=== PATIENT | male | born 1945 | race Caucasian/White ===

== ENCOUNTER → 2020-04-11 11:55 | Outpatient (BNVA) | payer MEDICARE, OTHER, SELFPAY | PROVIDERS: Visit Provider Internal Medicine Cardiovascular Disease | DX: I10 Essential (primary) hypertension (principal); I25.10 Atherosclerotic heart disease of native coronary artery without angina pectoris; E78.2 Mixed hyperlipidemia; E11.9 Type 2 diabetes mellitus without complications; Z87.891 Personal history of nicotine dependence | CPT/HCPCS: 80053; 85025 ==

== ENCOUNTER → 2021-05-15 10:03 | Outpatient (BNVA) | payer MEDICARE, OTHER, SELFPAY | PROVIDERS: Referring Provider Family Medicine; Visit Provider Specialist | DX: G56.01 Carpal tunnel syndrome, right upper limb (principal); G56.21 Lesion of ulnar nerve, right upper limb; Z87.891 Personal history of nicotine dependence | CPT/HCPCS: 95908 ==

== ENCOUNTER → 2022-03-18 13:06 | Outpatient (BNVA) | payer MEDICARE, OTHER, SELFPAY | PROVIDERS: Visit Provider Thoracic Surgery (Cardiothoracic Vascular Surgery) | DX: E11.621 Type 2 diabetes mellitus with foot ulcer (principal); L97.812 Non-pressure chronic ulcer of other part of right lower leg with fat layer exposed; I96 Gangrene, not elsewhere classified | CPT/HCPCS: 97597; 99203; 99213; A6212 ==

== ENCOUNTER → 2022-04-01 08:09 | Outpatient (BNVA) | payer MEDICARE, OTHER, SELFPAY | PROVIDERS: Visit Provider Nurse Practitioner Family | DX: E11.622 Type 2 diabetes mellitus with other skin ulcer (principal); L97.812 Non-pressure chronic ulcer of other part of right lower leg with fat layer exposed; I96 Gangrene, not elsewhere classified; L97.822 Non-pressure chronic ulcer of other part of left lower leg with fat layer exposed | CPT/HCPCS: 11042 ==

== ENCOUNTER → 2022-04-15 08:03 | Outpatient (BNVA) | payer MEDICARE, OTHER, SELFPAY | PROVIDERS: Visit Provider Thoracic Surgery (Cardiothoracic Vascular Surgery) | DX: E11.622 Type 2 diabetes mellitus with other skin ulcer (principal); L97.422 Non-pressure chronic ulcer of left heel and midfoot with fat layer exposed; I96 Gangrene, not elsewhere classified | CPT/HCPCS: 97597 ==

== ENCOUNTER → 2022-04-22 08:08 | Outpatient (BNVA) | payer MEDICARE, OTHER, SELFPAY | PROVIDERS: Visit Provider Nurse Practitioner Family | DX: E11.622 Type 2 diabetes mellitus with other skin ulcer (principal); L97.812 Non-pressure chronic ulcer of other part of right lower leg with fat layer exposed; I96 Gangrene, not elsewhere classified | CPT/HCPCS: 11042; A6212 ==

== ENCOUNTER → 2022-04-29 08:45 | Outpatient (BNVA) | payer MEDICARE, OTHER, SELFPAY | PROVIDERS: Visit Provider Thoracic Surgery (Cardiothoracic Vascular Surgery) | DX: E11.622 Type 2 diabetes mellitus with other skin ulcer (principal); L97.812 Non-pressure chronic ulcer of other part of right lower leg with fat layer exposed; I96 Gangrene, not elsewhere classified | CPT/HCPCS: 97597; A6021 ==

== ENCOUNTER → 2022-05-08 08:24 | Outpatient (BNVA) | payer MEDICARE, OTHER, SELFPAY | PROVIDERS: Visit Provider Thoracic Surgery (Cardiothoracic Vascular Surgery) | DX: E11.622 Type 2 diabetes mellitus with other skin ulcer (principal); L97.811 Non-pressure chronic ulcer of other part of right lower leg limited to breakdown of skin; I96 Gangrene, not elsewhere classified | CPT/HCPCS: 97597 ==

== ENCOUNTER → 2022-05-15 08:29 | Outpatient (BNVA) | payer MEDICARE, OTHER, SELFPAY | PROVIDERS: Visit Provider Thoracic Surgery (Cardiothoracic Vascular Surgery) | DX: E11.622 Type 2 diabetes mellitus with other skin ulcer (principal); L97.811 Non-pressure chronic ulcer of other part of right lower leg limited to breakdown of skin; L97.812 Non-pressure chronic ulcer of other part of right lower leg with fat layer exposed; I96 Gangrene, not elsewhere classified | CPT/HCPCS: 97597 ==

== ENCOUNTER → 2022-05-17 13:13 | Outpatient (BNVA) | payer MEDICARE, OTHER, SELFPAY | PROVIDERS: Visit Provider Surgery | DX: I70.213 Atherosclerosis of native arteries of extremities with intermittent claudication, bilateral legs (principal); E11.622 Type 2 diabetes mellitus with other skin ulcer; L97.212 Non-pressure chronic ulcer of right calf with fat layer exposed | CPT/HCPCS: 29581 ==

== ENCOUNTER → 2022-05-22 08:43 | Outpatient (BNVA) | payer MEDICARE, OTHER, SELFPAY | PROVIDERS: Visit Provider Nurse Practitioner Family | DX: E11.622 Type 2 diabetes mellitus with other skin ulcer (principal); L97.811 Non-pressure chronic ulcer of other part of right lower leg limited to breakdown of skin; I96 Gangrene, not elsewhere classified; L97.812 Non-pressure chronic ulcer of other part of right lower leg with fat layer exposed | CPT/HCPCS: 97597 ==

== ENCOUNTER → 2022-05-29 09:30 | Outpatient (BNVA) | payer MEDICARE, OTHER, SELFPAY | PROVIDERS: Visit Provider Thoracic Surgery (Cardiothoracic Vascular Surgery) | DX: Z09 Encounter for follow-up examination after completed treatment for conditions other than malignant neoplasm (principal) | CPT/HCPCS: 99212 ==

== ENCOUNTER → 2022-06-05 07:59 | Outpatient (BNVA) | payer MEDICARE, OTHER, SELFPAY | PROVIDERS: Visit Provider Nurse Practitioner Family | DX: I96 Gangrene, not elsewhere classified (principal); I87.2 Venous insufficiency (chronic) (peripheral); L97.811 Non-pressure chronic ulcer of other part of right lower leg limited to breakdown of skin | CPT/HCPCS: 11042 ==

== ENCOUNTER → 2022-06-12 07:58 | Outpatient (BNVA) | payer MEDICARE, OTHER, SELFPAY | PROVIDERS: Visit Provider Thoracic Surgery (Cardiothoracic Vascular Surgery) | DX: I96 Gangrene, not elsewhere classified (principal); I87.2 Venous insufficiency (chronic) (peripheral); L97.811 Non-pressure chronic ulcer of other part of right lower leg limited to breakdown of skin | CPT/HCPCS: 97597; A6021 ==

== ENCOUNTER → 2022-06-19 07:52 | Outpatient (BNVA) | payer MEDICARE, OTHER, SELFPAY | PROVIDERS: Visit Provider Thoracic Surgery (Cardiothoracic Vascular Surgery) | DX: Z09 Encounter for follow-up examination after completed treatment for conditions other than malignant neoplasm (principal) | CPT/HCPCS: 99212; A6212 ==

== ENCOUNTER → 2022-07-02 13:30 | Outpatient (BNVA) | payer MEDICARE, OTHER, SELFPAY | PROVIDERS: Visit Provider Nurse Practitioner Family | DX: I96 Gangrene, not elsewhere classified (principal); E11.622 Type 2 diabetes mellitus with other skin ulcer; L97.812 Non-pressure chronic ulcer of other part of right lower leg with fat layer exposed; I70.213 Atherosclerosis of native arteries of extremities with intermittent claudication, bilateral legs | CPT/HCPCS: 11042; 11045 ==

== ENCOUNTER → 2022-07-09 10:38 | Outpatient (BNVA) | payer MEDICARE, OTHER, SELFPAY | PROVIDERS: Visit Provider Nurse Practitioner Family | DX: I96 Gangrene, not elsewhere classified (principal); E11.622 Type 2 diabetes mellitus with other skin ulcer; L97.811 Non-pressure chronic ulcer of other part of right lower leg limited to breakdown of skin | CPT/HCPCS: 11042 ==

== ENCOUNTER → 2022-07-16 12:59 | Outpatient (BNVA) | payer MEDICARE, OTHER, SELFPAY | PROVIDERS: Visit Provider Nurse Practitioner Family | DX: I96 Gangrene, not elsewhere classified (principal); E11.622 Type 2 diabetes mellitus with other skin ulcer; L97.811 Non-pressure chronic ulcer of other part of right lower leg limited to breakdown of skin | CPT/HCPCS: 11042; A6021 ==

== ENCOUNTER → 2022-07-23 12:54 | Outpatient (BNVA) | payer MEDICARE, OTHER, SELFPAY | PROVIDERS: Visit Provider Nurse Practitioner Family | DX: I96 Gangrene, not elsewhere classified (principal); E11.622 Type 2 diabetes mellitus with other skin ulcer; L97.811 Non-pressure chronic ulcer of other part of right lower leg limited to breakdown of skin | CPT/HCPCS: 99212 ==

== ENCOUNTER 2023-01-17 01:40 | Emergency (ER) | payer MEDICARE, OTHER, SELFPAY ==
--- NOTE | 2023-01-17 01:42 | XRR_ITS ---
PROCEDURE INFORMATION: Exam: XR Abdomen Exam date and time: 01/17/2023 1:49 AM Age: 77 years old Clinical indication: Patient HX: C/O constipation TECHNIQUE: Imaging protocol: Radiologic exam of the abdomen. Views: Frontal supine view of the abdomen. 1 View. COMPARISON: CR XR chest 1V [id number] 11/05/2017 12:05 PM FINDINGS: Gastrointestinal tract: Large diffuse colonic fecal volume. Negative for small bowel dilation. Bones/joints: Unremarkable. XR/XR KUB portable [id number] IMPRESSION: Constipation.
[2023-01-17 01:49] VITALS: BP 185/78; PULSE 97; RESP 18; TEMP 36.6; O2SAT 99; BMI 25.8
--- NOTE | 2023-01-17 01:49 | ED_ITS ---
HPI - Abdominal Pain General: Chief Complaint: Urogenital-Male Stated Complaint: Dehdrated\Cant Pee or BM Time Seen by Provider: 01/17/23 01:41 Source: patient Mode of arrival: ambulatory Limitations: no limitations History of Present Illness: 77-year-old male states that he has not been able to urinate throughout the day. States been drinking lots of water and he feels like his bladder is full but he is just a male urinate he is also been constipated he states he has not a bowel movement in 2 days. He has had urinary obstruction once before he states he also feels like he may be dehydrated he denies any vomiting or diarrhea or fevers he has some abdominal pain over his bladder. Associated Symptoms: Reports constipation; Denies chills, diarrhea, fever(s), nausea and vomiting Review of Systems Const: Denies: fever(s) or chills Eyes: Denies: blurry vision ENMT: Denies: throat pain or dental pain Card: Denies: chest pain Resp: Denies: dyspnea GI: Reports: abdominal pain and constipation; Denies: nausea, vomiting or diarrhea : Reports: difficulty starting urination Musc: Denies: neck pain or back pain Skin/Breast: Denies: rash Neuro: Denies: headache(s) PFS ED PFSH: Medical History (Updated 01/17/23 @ 03:52 by Delonte Hernandez MD) CAD (coronary artery disease) Chest pain CKD (chronic kidney disease) Diabetes HTN (hypertension) Hyperlipidemia Palpitations Paresthesia Shortness of breath Sleep apnea Family History Other CAD (coronary artery disease) Cancer Diabetes Social History Smoking and tobacco status: former smoker Alcohol intake: never Substance/Drug Use: never Physical Exam Const: COMMON NORMALS: no acute distress, patient oriented x3 and healthy appearing HENMT: COMMON NORMALS: normocephalic and atraumatic HEAD & SCALP: normocephalic and atraumatic Eye: COMMON NORMALS: conjunctivae normal CONJUNCTIVA: Yes conjunctivae normal Neck/C-Spine: COMMON NORMALS: full ROM and supple Chest: COMMONS NORMALS: normal inspection of the chest and normal palpation of entire chest wall Resp: COMMON NORMALS: normal respiratory effort, No retractions, No use of accessory muscles and clear to auscultation bilaterally AUSCULTATION: clear to auscultation bilaterally Cardio: COMMON NORMALS: regular rate, regular rhythm and No murmurs present (Cardio) RATE: regular rate RHYTHM: regular rhythm GI: COMMON NORMALS: Normal to inspection, nondistended, normoactive bowel sounds present, Soft to palpation and no masses PALPATION: Yes Soft to palpation OTHER: tenderness over suprapubic region Extremity: COMMON NORMALS: normal to inspection and full ROM Neuro: COMMON NORMALS: patient oriented x3, moves all extremities and no focal motor deficits Psych: COMMON NORMALS: mental status grossly normal, Normal thought process present and cooperative THOUGHT PROCESS: Normal thought process present Skin: COMMON NORMALS: no rashes or lesions noted and no wounds GENERAL SKIN EXAM: no rashes or lesions noted Course Vital Signs: Vital signs: Vital Signs Temperature 97.9 F 01/17/23 01:49 Pulse Rate 97 01/17/23 01:49 Respiratory Rate 18 01/17/23 01:49 Blood Pressure 185/78 01/17/23 01:49 Pulse Oximetry 99 01/17/23 01:49 Oxygen Delivery Me thod Room Air 01/17/23 01:49 MDM - Abdominal Pain Medical Decision Making Patient presents with urinary retention had a Goel placed and feels much improved he does have constipation as well we will place him on MiraLAX his blood work here is normal we will discharge him with a leg bag he is to follow- up with his PCP along with urology and return if worsening he understands agrees to plan. Lab Data 01/17/23 03:12 01/17/23 03:12 Labs/Radiology: Radiology Impressions KUB X-Ray 01/17/23 01:42 IMPRESSION: Constipation. Laboratory Results WBC 8.6 10^3/uL (4.0-10.0) 01/17/23 03:12 RBC 4.39 10^6/uL (4.1-5.3) 01/17/23 03:12 Hgb 13.7 g/dL (11.7-16.6) 01/17/23 03:12 Hct 41.6 % (42.0-52.0) L 01/17/23 03:12 MCV 94.8 fl (80-94) H 01/17/23 03:12 MCH 31.2 pg (28.0-34.0) 01/17/23 03:12 MCHC 32.9 g/dL (30.0-36.0) 01/17/23 03:12 RDW 13.7 % (12.1-15.1) 01/17/23 03:12 Plt Count 221 10^3/cmm (130-400) 01/17/23 03:12 MPV 8.3 fL (7.4-10.4) 01/17/23 03:12 Neut % (Auto) 64.7 % 01/17/23 03:12 Lymph % (Auto) 22.1 % 01/17/23 03:12 [place] % (Auto) 9.3 % 01/17/23 03:12 Eos % (Auto) 3.3 % 01/17/23 03:12 Baso % (Auto) 0.2 % 01/17/23 03:12 Neut # (Auto) 5.54 10^3/uL (1.8-7.7) 01/17/23 03:12 Lymph # (Auto) 1.9 10^3/uL (0.8-4.8) 01/17/23 03:12 [place] # (Auto) 0.8 10^3/uL (0.2-0.9) 01/17/23 03:12 Eos # (Auto) 0.3 10^3/uL (0.0-0.8) 01/17/23 03:12 Baso # (Auto) 0.0 10^3/uL (0.0-0.1) 01/17/23 03:12 Nucleated RBC % (auto) 0 % 01/17/23 03:12 Nucleated RBCs # 0.0 /100WBC 01/17/23 03:12 Sodium 131 mmol/L (136-145) L 01/17/23 03:12 Potassium 4.6 mmol/L (3.5-5.1) 01/17/23 03:12 Chloride 99 mmol/L (98-107) 01/17/23 03:12 Carbon Dioxide 23 mmol/L (22-29) 01/17/23 03:12 Anion Gap 13.6 (5-19) 01/17/23 03:12 BUN 19 mg/dL (8-23) 01/17/23 03:12 Creatinine 1.0 mg/dL (0.7-1.2) 01/17/23 03:12 GFR Calculation Not Reportable 01/17/23 03:12 Glucose 167 mg/dL (65-115) H 01/17/23 03:12 Calculated Osmolality 278 mOsm/kg (285-295) L 01/17/23 03:12 Calcium 8.6 mg/dL (8.5-10.5) 01/17/23 03:12 Total Bilirubin 0.5 mg/dL (0.15-1.2) 01/17/23 03:12 AST 24 U/L (0-40) 01/17/23 03:12 ALT 21 U/L (0-41) 01/17/23 03:12 Alkaline Phosphatase 77 U/L (40-130) 01/17/23 03:12 Total Protein 5.8 g/dL (6.6-8.7) L 01/17/23 03:12 Albumin 3.7 g/dL (3.5-5.2) 01/17/23 03:12 Globulin 2.1 g/dL (1.3-4.6) 01/17/23 03:12 Urine Color Yellow (Yellow) 01/17/23 03:09 Urine Appearance Clear (CLEAR) 01/17/23 03:09 Urine pH 6 (5-7) 01/17/23 03:09 Ur Specific [place] 1.010 (1.005-1.030) 01/17/23 03:09 Urine Protein Neg (Negative) 01/17/23 03:09 Urine Glucose (UA) 2+ (Normal) H 01/17/23 03:09 Urine Ketones Negative (Negative) 01/17/23 03:09 Urine Blood Neg (Negative) 01/17/23 03:09 Urine Nitrate Negative (Negative) 01/17/23 03:09 Urine Bilirubin Neg (Negative) 01/17/23 03:09 Urine Urobilinogen Neg mg/dL (Negative) 01/17/23 03:09 Ur Leukocyte Esterase Negative (Negative) 01/17/23 03:09 Discharge Plan Discharge Patient Disposition: Home Clinical Impression: Acute retention of urine, Constipation Condition: Stable Prescriptions: New Miralax 17 gram powder in packet 17 g PO DAILY PRN (Reason: constipation) Qty: 14 0RF No Action aspirin [Adult Low Dose Aspirin] 81 mg tablet,delayed release (DR/EC) 81 mg PO QDAY atorvastatin 20 mg tablet 20 mg PO QDAY fenofibrate nanocrystallized 145 mg tablet 145 mg PO QDAY fluticasone propionate 50 mcg/actuation spray,suspension 2 spray INTRANASAL QDAY insulin glargine SUBCUT furosemide 20 mg tablet 20 mg PO QDAY pregabalin [Lyrica] 150 mg capsule 150 mg PO TID nitroglycerin 0.4 mg tablet, sublingual 0.4 mg SUBLINGUAL Q5M PRN insulin aspart U-100 SUBCUT omega-3 fatty acids 1,000 mg capsule 1,000 mg PO QDAY potassium chloride 8 mEq capsule, extended release 8 meq PO QDAY Adult Probiotic 3 billion cell capsule 3,000 mmu cells PO QDAY vitamin B complex [Super B-50 Complex] Capsule 1 cap PO QDAY tamsulosin 0.4 mg capsule 0.4 mg PO QDAY cholecalciferol (vitamin D3) 1,000 unit capsule 1,000 unit PO QDAY Trulicity 1.5 mg/0.5 mL pen injector 1.5 mg SUBCUT .Q 7d gabapentin 800 mg tablet 800 mg PO BID losartan 50 mg tablet 75 mg PO QDAY Qty: 135 2RF metoprolol tartrate 50 mg tablet See Rx Instructions .ROUTE .COMPLEX Qty: 30 0RF Dose Instruction: TAKE 1 TABLET TWICE A DAY Rx Instructions: TAKE 1 TABLET TWICE A DAY Discharge Orders: Discharge ED (Routine); Ordered 01/17/23 Ordered By: Delonte Hernandez Referrals: Norm Aldana MD [Physician] - 1-3 days Bushra Rivera PA-C [Primary Care Provider] - 1-3 days Discharge Diet: Advance as tolerated Discharge Activity: Resume usual activity Patient Instructions: Constipation (ED), Urinary Retention in Men (ED) Coding Level of Care Code ED [employer] for Rashel Ortiz
[2023-01-17 03:21] LABS: Add Urine Microscopic? NO; Charge for UA Resulting for Rev
[2023-01-17 03:24] LABS: Basophils % 0.2 %; Eosinophils # 0.3 10^3/uL (0.0-0.8); Eosinophils % 3.3 %; Hematocrit 41.6 % (42.0-52.0); Hemoglobin 13.7 g/dL (11.7-16.6); Lymphocytes # 1.9 10^3/uL (0.8-4.8); Lymphocytes % 22.1 %; Mean Corpuscular HGB Conc 32.9 g/dL (30.0-36.0); Mean Corpuscular Hemoglobin 31.2 pg (28.0-34.0); Mean Corpuscular Volume 94.8 fl (80-94); Mean Platelet Volume 8.3 fL (7.4-10.4); Monocytes # 0.8 10^3/uL (0.2-0.9); Monocytes % 9.3 %; Neutrophils # 5.54 10^3/uL (1.8-7.7); Neutrophils % 64.7 %; Nucleated Red Blood Cells % 0 %; Platelet Count 221 10^3/cmm (130-400); Red Blood Count 4.39 10^6/uL (4.1-5.3); Red Cell Distribution Width 13.7 % (12.1-15.1); White Blood Count 8.6 10^3/uL (4.0-10.0)
[2023-01-17 03:37] LABS: Bilirubin Urine Neg (Negative); Blood Urine Neg (Negative); Glucose Urine UA 2+ (Normal); Ketones Urine Negative (Negative); Leukocyte Esterase Urine Negative (Negative); Nitrate Urine Negative (Negative); Protein Urine Neg (Negative); Urine Appearance Clear (CLEAR); Urine Color Yellow (Yellow); Urobilinogen Urine Neg (Negative); pH Urine 6 (5-7)
[2023-01-17] MEDS: sodium chloride 0.9% 1,000 ML 999 ML IV (03:39)
[2023-01-17] MEDS: lactulose oral liq 20 gm/30 mL UDC 30 GM PO (03:39)
[2023-01-17 03:47] LABS: Alanine Aminotransferase 21 U/L (0-41); Albumin Level 3.7 g/dL (3.5-5.2); Alkaline Phosphatase 77 U/L (40-130); Blood Urea Nitrogen 19 mg/dL (8-23); Calcium 8.6 mg/dL (8.5-10.5); Carbon Dioxide 23 mmol/L (22-29); Chloride 99 mmol/L (98-107); Creatinine Clr Calc Pharmacy 67.9634; Globulin 2.1 g/dL (1.3-4.6); Glucose 167 mg/dL (65-115); Osmolality Calculated 278 mOsm/kg (285-295); Sodium 131 mmol/L (136-145); Total Bilirubin 0.5 mg/dL (0.15-1.2); Total Protein 5.8 g/dL (6.6-8.7)
[2023-01-17 03:49] LABS: Anion Gap 13.6 (5-19); Potassium 4.6 mmol/L (3.5-5.1)
[2023-01-17 03:50] LABS: Aspartate Amino Transferase 24 U/L (0-40)
--- NOTE | 2023-01-17 09:12 | DCPLANNER ---
Addendum entered by Loreta Barber 01/22/23 11:03: hotel operations manager received the following message from the urology clinic regarding follow up appointment: Pt. states he does not need an appt. he is doing fine Original Note: hotel operations manager had message to schedule a follow up appointment for patient with urology. hotel operations manager sent patients information to the front office staff at urology. Patients information will be printed and reviewed. Clinic will call patient with appointment information.
== END 2023-01-17 04:15 | disposition home or self-care (01) ==
PROVIDERS: Emergency Provider Emergency Medicine; PCP Physician Assistant
DX: R33.9 Retention of urine, unspecified (principal); K59.00 Constipation, unspecified; Z79.4 Long term (current) use of insulin; Z79.82 Long term (current) use of aspirin; Z79.85 Long-term (current) use of injectable non-insulin antidiabetic drugs; I25.10 Atherosclerotic heart disease of native coronary artery without angina pectoris; E11.22 Type 2 diabetes mellitus with diabetic chronic kidney disease; I12.9 Hypertensive chronic kidney disease with stage 1 through stage 4 chronic kidney disease, or unspecified chronic kidney disease; N18.9 Chronic kidney disease, unspecified; E78.5 Hyperlipidemia, unspecified; Z87.891 Personal history of nicotine dependence
CPT/HCPCS: 51702; 74018; 80053; 81003; 85025; 96360; 99284; J7030

== ENCOUNTER → 2024-01-19 12:59 | Outpatient (BNVA) | payer MEDICARE, OTHER, SELFPAY | PROVIDERS: PCP Physician Assistant; Visit Provider Nurse Practitioner Family | DX: E11.52 Type 2 diabetes mellitus with diabetic peripheral angiopathy with gangrene (principal); E11.622 Type 2 diabetes mellitus with other skin ulcer; L97.821 Non-pressure chronic ulcer of other part of left lower leg limited to breakdown of skin; L97.811 Non-pressure chronic ulcer of other part of right lower leg limited to breakdown of skin; S80.822D Blister (nonthermal), left lower leg, subsequent encounter; X58.XXXD Exposure to other specified factors, subsequent encounter | CPT/HCPCS: 97597; 99212 ==

== ENCOUNTER → 2024-05-11 07:56 | Outpatient (BNVA) | payer MEDICARE, OTHER, SELFPAY | PROVIDERS: PCP Physician Assistant; Visit Provider Thoracic Surgery (Cardiothoracic Vascular Surgery) | DX: E11.52 Type 2 diabetes mellitus with diabetic peripheral angiopathy with gangrene (principal); E11.622 Type 2 diabetes mellitus with other skin ulcer; L97.811 Non-pressure chronic ulcer of other part of right lower leg limited to breakdown of skin; L97.821 Non-pressure chronic ulcer of other part of left lower leg limited to breakdown of skin | CPT/HCPCS: 97597; 97598; 99213; A6021 ==

== ENCOUNTER → 2024-05-13 09:05 | Outpatient (BNVA) | payer MEDICARE, OTHER, SELFPAY | PROVIDERS: PCP Physician Assistant; Visit Provider Thoracic Surgery (Cardiothoracic Vascular Surgery) | DX: E11.52 Type 2 diabetes mellitus with diabetic peripheral angiopathy with gangrene (principal); E11.622 Type 2 diabetes mellitus with other skin ulcer; L97.811 Non-pressure chronic ulcer of other part of right lower leg limited to breakdown of skin; L97.821 Non-pressure chronic ulcer of other part of left lower leg limited to breakdown of skin | CPT/HCPCS: 29581; 97597; A6021 ==

== ENCOUNTER → 2024-05-18 09:41 | Outpatient (BNVA) | payer MEDICARE, OTHER, SELFPAY | PROVIDERS: PCP Physician Assistant; Visit Provider Thoracic Surgery (Cardiothoracic Vascular Surgery) | DX: E11.52 Type 2 diabetes mellitus with diabetic peripheral angiopathy with gangrene (principal); E11.622 Type 2 diabetes mellitus with other skin ulcer; L97.811 Non-pressure chronic ulcer of other part of right lower leg limited to breakdown of skin; L97.821 Non-pressure chronic ulcer of other part of left lower leg limited to breakdown of skin; Z09 Encounter for follow-up examination after completed treatment for conditions other than malignant neoplasm | CPT/HCPCS: 97597; A6021 ==

== ENCOUNTER → 2024-05-26 09:32 | Outpatient (BNVA) | payer MEDICARE, OTHER, SELFPAY | PROVIDERS: PCP Physician Assistant; Visit Provider Thoracic Surgery (Cardiothoracic Vascular Surgery) | DX: Z09 Encounter for follow-up examination after completed treatment for conditions other than malignant neoplasm (principal); Z87.2 Personal history of diseases of the skin and subcutaneous tissue | CPT/HCPCS: 99212 ==